=== PATIENT | female | born 1950 | race Caucasian/White ===

== ENCOUNTER 2017-04-06 15:54 | Emergency (ER) | payer MEDICARE, OTHER ==
[2017-04-06 17:01] VITALS: BP 133/62
--- NOTE | 2017-04-06 17:14 | UC ---
Complaint Female HPI - HPI Summary HPI Summary: C/O vaginal itching that is much worse in the last 2 days. - History Of Current Complaint Chief Complaint: UCGU Stated Complaint: URINARY Time Seen by Provider: 04/06/17 17:08 Hx Obtained From: Patient ?: No Onset/Duration: Gradual Onset, Lasting Weeks - 1 1/2, Worse Since - in the last 2 days. Timing: Constant Severity Initially: Mild Severity Currently: Moderate Character: Not Applicable Aggravating Factor(s): Urination Alleviating Factor(s): Nothing Associated Signs And Symptoms: Positive: Vaginal Bleeding/Discharge - Just itching Related Hx: Similar Episode/Dx as: - Yeast infection. - Allergies/Home Medications Allergies/Adverse Reactions: Allergies Allergy/AdvReac Type Severity Reaction Status Date / Time No Known Allergies Allergy Verified 04/06/17 17:01 Home Medications: Home Medications Loxapine Succinate [Loxapine] 2 cap PO DAILY 04/06/17 [History Confirmed ] amLODIPine TAB* [Norvasc 5 mg TAB*] 5 mg PO DAILY 04/06/17 [History Confirmed ] PMH/Surg Hx/FS Hx/Imm Hx Endocrine History: Diabetes, Dyslipidemia Cardiovascular History: Hypertension - Surgical History Surgical History: Yes Surgery Procedure, Year, and Place: L ovary removal. BENIGN TUMOR REMOVED FROM BLADDER - Family History Known Family History: Positive: Hypertension - Social History Occupation: Retired Lives: With Family Alcohol Use: Occasionally Substance Use Type: None Smoking Status (MU): Never Smoked Tobacco Have You Smoked in the Last Year: No Review of Systems Genitourinary: Dysuria Is Patient Immunocompromised?: No All Other Systems Reviewed And Are Negative: Yes Physical Exam Triage Information Reviewed: Yes Appearance: Well-Appearing, No Pain Distress, Well-Nourished Vital Signs: Initial Vital Signs Temp 97.0 F 04/06/17 16:56 Pulse 71 04/06/17 16:56 Resp 14 04/06/17 16:56 BP 133/62 04/06/17 16:56 Pulse Ox 100 04/06/17 16:56 Vital Signs Reviewed: Yes Eyes: Positive: Conjunctiva Clear Neck exam: Normal Respiratory Exam: Normal Cardiovascular Exam: Normal Abdominal Exam: Normal Abdomen Description: Positive: Other: - External genitalia with mild erythema Musculoskeletal Exam: Normal Neurological Exam: Normal Psychological Exam: Normal Skin Exam: Normal Complaint Female Dx - Differential Dx/Diagnosis Differential Diagnosis/HQI/PQRI: Bartholin Cyst, Cervicitis, Urinary Tract Infection Provider Diagnoses: Vulvovaginitis Discharge - Discharge Plan Condition: Stable Disposition: HOME Prescriptions: Fluconazole 150 MG (NF) [Diflucan 150 mg (NF)] 150 mg PO ONCE #1 tab Ketoconazole 2 % CREAM (NF) [Nizoral 2% CREAM (NF)] 1 applic TOPICAL BID #30 gm Patient Education Materials: Vaginitis (ED), Ketoconazole (On the skin), Fluconazole (By mouth) Additional Instructions: We recommend yogurt. If a different vaginitis, bacterial vaginosis, is found a different vaginal cream will be sent in.
== END 2017-04-06 18:00 | disposition home or self-care (01) ==
LOC: UCCORT 15:54
DX: N76.0 Acute vaginitis (principal); R30.0 Dysuria; E11.9 Type 2 diabetes mellitus without complications; E78.5 Hyperlipidemia, unspecified; I10 Essential (primary) hypertension
CPT/HCPCS: 81003; 87086; 87480; 87510; 99212; G0463

== ENCOUNTER 2017-04-22 16:29 | Emergency (ER) | payer MEDICARE, BC ==
--- NOTE | 2017-04-22 17:21 | UC ---
Lower Extremity/Ankle HPI - HPI Summary HPI Summary: 66 YEAR OLD FEMALE PRESENTS WITH COMPLAINS OF LEFT ANKLE PAIN. - History of Current Complaint Stated Complaint: LEFT ANKLE INJURY Time Seen by Provider: 04/22/17 17:20 Hx Obtained From: Patient Onset/Duration: Sudden Onset Severity Initially: Moderate Severity Currently: Moderate Pain Scale Used: 0-10 Numeric - 5 Aggravating Factor(s): Standing Alleviating Factor(s): Rest - Allergies/Home Medications Allergies/Adverse Reactions: Allergies Allergy/AdvReac Type Severity Reaction Status Date / Time No Known Allergies Allergy Verified 04/22/17 17:21 PMH/Surg Hx/FS Hx/Imm Hx Previously Healthy: Yes - Surgical History Surgical History: Yes Surgery Procedure, Year, and Place: L ovary removal. BENIGN TUMOR REMOVED FROM BLADDER - Family History Known Family History: Positive: Hypertension - Social History Alcohol Use: Occasionally Substance Use Type: None Smoking Status (MU): Never Smoked Tobacco Have You Smoked in the Last Year: No Review of Systems Constitutional: Negative Skin: Negative Eyes: Negative ENT: Negative Respiratory: Negative Cardiovascular: Negative Gastrointestinal: Negative Genitourinary: Negative Motor: Negative Neurovascular: Negative Musculoskeletal: Other: - LEFT ANKLE PAIN Neurological: Negative Psychological: Negative All Other Systems Reviewed And Are Negative: Yes Physical Exam Triage Information Reviewed: Yes Vital Signs Reviewed: Yes Eye Exam: Normal ENT Exam: Normal Dental Exam: Normal Neck exam: Normal Neck: Positive: 1 Respiratory Exam: Normal Cardiovascular Exam: Normal Abdominal Exam: Normal Musculoskeletal: Positive: Other: - LEFT ANKLE PAIN Neurological Exam: Normal Psychological Exam: Normal Skin Exam: Normal Lower Extremity Course/Dx - Differential Dx/Diagnosis Provider Diagnoses: LEFT ANKLE PAIN/SPRAIN Discharge - Discharge Plan Condition: Stable Disposition: HOME Prescriptions: Ibuprofen TAB* [Motrin TAB* 800 MG] 800 mg PO Q6H #30 tab Patient Education Materials: Swollen Joint (ED), Ankle Sprain (ED) Referrals: Slava Bui MD [Medical Doctor] - Rocío Rodriguez MD [Primary Care Provider] -
[2017-04-22 17:23] VITALS: BP 131/70
--- NOTE | 2017-04-22 18:02 | RAD ---
INDICATION: Left lateral ankle pain after a twisting injury COMPARISON: None. TECHNIQUE: 3 views of the left ankle were obtained. FINDINGS: The well corticated bones exhibit normal alignment. Joint spaces appear maintained. An enthesophyte is noted at the insertion site of the Achilles tendon on the calcaneal tubercle. No fracture is seen. IMPRESSION: NO RADIOGRAPHICALLY APPARENT FRACTURE OR DISLOCATION. If the patient's symptoms persist, follow-up imaging is recommended.
== END 2017-04-22 18:16 | disposition home or self-care (01) ==
LOC: UCCORT 16:29
DX: S93.402A Sprain of unspecified ligament of left ankle, initial encounter (principal); X58.XXXA Exposure to other specified factors, initial encounter; Y92.9 Unspecified place or not applicable
CPT/HCPCS: 99213; G0463

== ENCOUNTER 2017-07-13 08:54 | Emergency (ER) | payer MEDICARE, BC ==
[2017-07-13 09:14] VITALS: BP 118/59
--- NOTE | 2017-07-13 09:37 | ED ---
Respiratory - HPI Summary HPI Summary: 66 yr old female with the complaint of sinus pressure, post nasal drip, coughing , chest congestion, and mild pain sternal area with coughing. Onset of symptoms a little over a week ago. She denies SOB. She is not a smoker. Denies fever. Symptoms 6/10 intensity. - History of Current Complaint Chief Complaint: UCRespiratory Stated Complaint: COUGH,MAJO,BACK Time Seen by Provider: 07/13/17 09:06 - Allergy/Home Medications Allergies/Adverse Reactions: Allergies Allergy/AdvReac Type Severity Reaction Status Date / Time No Known Allergies Allergy Verified 07/13/17 09:09 Home Medications: Home Medications Amoxicillin PO (*) [Amoxicillin 500 MG CAP*] 500 mg PO TID 07/13/17 [History Confirmed 07/13/17] PMH/Surg Hx/FS Hx/Imm Hx Endocrine/Hematology History: Reports: Hx Diabetes Cardiovascular History: Reports: Hx Hypertension Denies: Hx Pacemaker/ICD Respiratory History: Reports: Hx Pneumonia - hospitalized once, treated as out pt 3-4 times Denies: Hx Asthma Sensory History: Denies: Hx Hearing Aid Psychiatric History: Denies: Hx Panic Disorder - Cancer History Cancer Type, Location and Year: BLADDER Hx Chemotherapy: No Hx Radiation Therapy: No - Surgical History Surgery Procedure, Year, and Place: L ovary removal. BENIGN TUMOR REMOVED FROM BLADDER Infectious Disease History: No Infectious Disease History: Denies: Traveled Outside the [place] in Last 30 Days - Family History Known Family History: Positive: Hypertension - Social History Occupation: Employed Full-time Alcohol Use: Occasionally Substance Use Type: Reports: None Smoking Status (MU): Never Smoked Tobacco Have You Smoked in the Last Year: No Review of Systems Negative: Fever, Chills Positive: Sore Throat, Nasal Discharge Positive: Cough All Other Systems Reviewed And Are Negative: Yes Physical Exam Triage Information Reviewed: Yes Vital Signs On Initial Exam: Initial Vitals Temp Pulse Resp BP Pulse Ox 98.4 F 82 16 118/59 99 07/13/17 09:07 07/13/17 09:07 07/13/17 09:07 07/13/17 09:07 07/13/17 09:07 Vital Signs Reviewed: Yes Appearance: Positive: Well-Appearing, No Pain Distress Skin: Positive: Warm, Skin Color Reflects Adequate Perfusion Head/Face: Positive: Normal Head/Face Inspection Eyes: Positive: EOMI ENT: Positive: Pharyngeal erythema, TMs normal, Sinus tenderness Neck: Positive: Nontender Respiratory/Lung Sounds: Positive: Clear to Auscultation, Breath Sounds Present Cardiovascular: Positive: RRR. Negative: Murmur Abdomen Description: Positive: Nontender Musculoskeletal: Positive: Strength/ROM Intact Neurological: Positive: Sensory/Motor Intact, Alert, Oriented to Person Place, Time, CN Intact II-III Psychiatric: Positive: Normal - [place] Coma Scale Best Eye Response: 4 - Spontaneous Best Motor Response: 6 - Obeys Commands Best Verbal Response: 5 - Oriented Diagnostics - Vital Signs Vital Signs Temp Pulse Resp BP Pulse Ox 07/13/17 09:07 98.4 F 82 16 118/59 99 - Laboratory Lab Statement: Any lab studies that have been ordered have been reviewed, and results considered in the medical decision making process. Disposition - Course Course Of Treatment: 66 yr old female with sinusitis, and cough. Rx with augmentin. - Diagnoses Provider Diagnoses: Sinusitis Discharge - Discharge Plan Condition: Good Disposition: HOME Prescriptions: Amoxicillin/Clavulanate TAB* [Augmentin TAB 875*] 875 mg PO BID #20 tab Patient Education Materials: Sinusitis (ED) Referrals: Rocío Rodriguez MD [Primary Care Provider] - 2 Days
== END 2017-07-13 09:42 | disposition home or self-care (01) ==
LOC: UCCORT 08:54
DX: J32.9 Chronic sinusitis, unspecified (principal); E11.9 Type 2 diabetes mellitus without complications; I10 Essential (primary) hypertension; Z87.01 Personal history of pneumonia (recurrent)
CPT/HCPCS: 99212; G0463

== ENCOUNTER 2019-06-06 07:03 | Emergency (ER) | payer MEDICARE, BC ==
[2019-06-06 07:23] VITALS: BP 122/59
--- NOTE | 2019-06-06 07:38 | UC ---
Skin Complaint HPI - HPI Summary HPI Summary: SPOT ON LEFT BUTTOCK HAS BEEN ITCHY FOR A COUPLE OF WEEKS. FOR THE LAST FEW DAYS IT HAS BECOME FIRM, RED AND PAINFUL. NO FEVER. LESION IS NOT DRAINING. NO PREVIOUS SIMILAR EPISODES. - History of Current Complaint Chief Complaint: UCSkin Time Seen by Provider: 06/06/19 07:35 Stated Complaint: SKIN ISSUE Onset/Duration: Gradual Onset, Lasting Days, Still Present Timing: Constant Onset Severity: Moderate Current Severity: Moderate Pain Intensity: 2 Pain Scale Used: 0-10 Numeric Location: Discrete - LEFT BUTTOCK Character: Pain, Redness, Raised Aggravating Factor(s): Touch Alleviating Factor(s): Nothing Associated Signs & Symptoms: Positive: Tenderness - Allergy/Home Medications Allergies/Adverse Reactions: Allergies Allergy/AdvReac Type Severity Reaction Status Date / Time No Known Allergies Allergy Verified 06/06/19 07:15 Home Medications: Home Medications metFORMIN* [Glucophage 500 MG TAB *] 500 mg PO BID 06/06/19 [History Confirmed 06/06/19] PMH/Surg Hx/FS Hx/Imm Hx Endocrine History: Diabetes Cardiovascular History: Hypertension Other Cancer History: BLADDER - Surgical History Surgical History: Yes Surgery Procedure, Year, and Place: L ovary removal, TUMOR REMOVED FROM BLADDER - Family History Known Family History: Positive: Hypertension - Social History Alcohol Use: Occasionally Substance Use Type: None Smoking Status (MU): Never Smoked Tobacco Have You Smoked in the Last Year: No - Immunization History Most Recent Influenza Vaccination: May 2017 Review of Systems All Other Systems Reviewed And Are Negative: Yes Constitutional: Positive: Negative Skin: Positive: Other - PAINFUL LESION LEFT BUTTOCK Respiratory: Positive: Negative Cardiovascular: Positive: Negative Gastrointestinal: Positive: Negative Physical Exam Triage Information Reviewed: Yes Appearance: Well-Appearing, No Pain Distress, Well-Nourished Vital Signs: Initial Vital Signs Temp 98.2 F 06/06/19 07:19 Pulse 61 06/06/19 07:19 Resp 16 06/06/19 07:19 BP 122/59 06/06/19 07:19 Pulse Ox 100 06/06/19 07:19 Vital Signs Reviewed: Yes Eyes: Positive: Conjunctiva Clear ENT: Positive: Hearing grossly normal Neck: Positive: Supple Respiratory: Positive: No respiratory distress, No accessory muscle use Cardiovascular: Positive: Pulses Normal Abdomen Description: Positive: Soft Musculoskeletal: Positive: No Edema Neurological: Positive: Alert Psychological: Positive: Age Appropriate Behavior Skin: Positive: Other - LEFT BUTTOCK: 5CM AREA OF INDURATION WITH 2.5CM AREA OF ERYTHEMA CENTRALLY LOCATED. SLIGHT FLUCTUANCE IN THE CENTER. Course/Dx - Course Course Of Treatment: SMALL AREA OF FLUCTUANCE IN THE CENTER OF THE ABSCESS WHERE THERE IS LIKELY SOME PUS. PATIENT DECLINES INCISION AND DRAINAGE TODAY. SHE PREFERS TO DO HOT SOAKS AND TAKE ORAL ANTIBIOTICS. ADVISED THAT SHE MAY NEED TO HAVE IT OPENED UP LATER IF IT DOES NOT IMPROVE WITH THIS TREATMENT. SHE VERBALIZES UNDERSTANDING AND CONTINUES TO DECLINE INCISION AND DRAINAGE WHICH I THINK IS A REASONABLE OPTION AT THIS POINT. WILL COVER WITH BACTRIM TWICE DAILY FOR 10 DAYS. PATIENT MAY ALSO APPLY TOPICAL BACTROBAN. - Diagnoses Provider Diagnosis: Abscess of left buttock Discharge ED - Sign-Out/Discharge Documenting (check all that apply): Patient Departure All imaging exams completed and their final reports reviewed: No Studies - Discharge Plan Condition: Stable Disposition: HOME Prescriptions: Mupirocin 2% OINT* [Bactroban 2 % Oint*] 1 applic TOPICAL BID #1 tube Sulfamethox/Trimethoprim DS* [Bactrim DS 800/160 TAB*] 1 tab PO BID #20 tab Patient Education Materials: Abscess (ED) Referrals: Rocío Rodriguez MD [Primary Care Provider] - If Needed Additional Instructions: YOU HAVE AN ABSCESS ON YOUR LEFT BUTTOCK TAKE THE ANTIBIOTICS TWICE DAILY FOR THE FULL 10 DAYS WARM/HOT COMPRESSES/SOAKS AT LEAST 3 TIMES DAILY APPLY TOPICAL ANTIBIOTIC OINTMENT TWICE DAILY SEEK FOLLOW-UP IF YOU DEVELOP CONTINUED SPREADING REDNESS OF THE SKIN, PERSISTENT PURULENT DRAINAGE, FEVER, INCREASED PAIN OR ANY OTHER CONCERNING SYMPTOMS. - Billing Disposition and Condition Condition: STABLE Disposition: Home
== END 2019-06-06 07:56 | disposition home or self-care (01) ==
LOC: UCCORT 07:03
DX: L02.31 Cutaneous abscess of buttock (principal); I10 Essential (primary) hypertension; E11.9 Type 2 diabetes mellitus without complications; Z79.84 Long term (current) use of oral hypoglycemic drugs
CPT/HCPCS: 99212; G0463